=== PATIENT | female | born 1980 | race Caucasian/White ===

== ENCOUNTER 2022-05-26 23:38 | Emergency (ER) | payer BC ==
[~2022-05-26] VITALS: Ht 167.6 cm; Wt 68.0 kg
[2022-05-26] MEDS ORDERED: MORPHINE SULFATE INJ 4 MG/ML DISP.SYRIN ONE (23:53)
--- NOTE | 2022-05-26 23:55 | NUR ---
ROMY AGGARWAL PROPERLY EDUCATING THE RN STUDENTS FROM THE [facility] HOW TO CAREFULLY INSERT AN INTRAVENOUS LINE SO THAT THEY CAN ACQUIRE THE NEEDED AMOUNT OF BLOOD WORK SPECIMENS. Addendum: 05/27/22 at 0009 by ALONDRA SHYLA ARMSTRONG, * OF THE [facility]*
--- NOTE | 2022-05-26 23:55 | NUR ---
ZULEYKASKATRIN C/O RIGHT LOWER ABDOMINAL PAIN SINCE THIS AM. -N/V +D. PATIENT ALERT AND ORIENTED X3. AMBULATORY WITH NON LABORED BREATHING IN BED 11 ON MONITOR AND POX SEEN BY AT [facility].
--- NOTE | 2022-05-27 00:08 | NUR ---
IV CANNULA G20 INSERTED ON LEFT AC. BLOOD DRAWN AND SENT TO LAB
[2022-05-27] MEDS: IV NS 0.9% 1,000 ML BAG IV ONE (00:12)
[2022-05-27] MEDS: MORPHINE SULFATE INJ 2 MG/ML DISP.SYRIN IV ONE (00:15)
--- NOTE | 2022-05-27 00:16 | NUR ---
URINE COLLECTED AND SENT TO LAB
--- NOTE | 2022-05-27 00:16 | NUR ---
PT TAKEN TO CT VIA [facility]
--- NOTE | 2022-05-27 00:27 | NUR ---
PT RETURNED TO ER BED [address]
[2022-05-27 00:30] LABS: CALCIUM, SERUM 8.7 mg/dL (8.5-10.1); CREATININE 0.8 mg/dL (0.6-1.3); POTASSIUM 4.1 mmol/L (3.5-5.1)
[2022-05-27 00:34] LABS: BILIRUBIN,URINE NEGATIVE (NEGATIVE); COLOR,URINE YELLOW (YELLOW); LEUKOCYTE ESTERASE ,URINE NEGATIVE (NEGATIVE); NITRITE, URINE NEGATIVE (NEGATIVE); PH,URINE 6.5 (5.0-8.0); PROTEIN,URINE NEGATIVE (NEGATIVE); UGLUCOSE NEGATIVE (NEGATIVE); UROBILINOGEN,URINE 0.2 EU/dL (0.2)
[2022-05-27] MEDS ORDERED: KETO10TA2 PO (01:20)
[2022-05-27] MEDS ORDERED: KETOROLAC TROMETHAMINE 15 MG/ML VIAL ONE (01:21)
[2022-05-27] MEDS ORDERED: ONDANSETRON HCL/PF 4 MG/2 ML VIAL ONE (01:22)
[2022-05-27] MEDS: KETOROLAC TROMETHAMINE INJ 30 MG/ML VIAL IV ONE (01:30)
[2022-05-27] MEDS: ONDANSETRON HCL/PF 4 MG/2 ML VIAL IV ONE (01:30)
--- NOTE | 2022-05-27 01:31 | NUR ---
Patient discharged to home in stable condition. Written and verbal after care instructions given. Patient verbalizes understanding of instruction. IV removed. Catheter intact and site benign. Pressure and 4x4 applied to site. No bleeding noted. PT ambulatory with a steady gait
[2022-05-27 01:32] VITALS: BP 128/85
== END 2022-05-27 01:34 | disposition home or self-care (01) ==
LOC: ER 23:42
DX: N83.201 Unspecified ovarian cyst, right side (principal); Z88.5 Allergy status to narcotic agent
CPT/HCPCS: 99284; 74176; 80048; 36415; 96374; 96375; 81003; J2405; J7030; J1885; J2270